=== PATIENT | male | born 1960 | race Caucasian/White ===

== ENCOUNTER → 2024-12-22 11:37 | Outpatient (REF) | payer BC, SELFPAY | LOC: RCS 11:37 | PROVIDERS: ATTENDING PHYSICIAN Internal Medicine Interventional Cardiology; FAMILY PHYSICIAN Family Medicine | DX: R06.09 Other forms of dyspnea (principal); I25.2 Old myocardial infarction | CPT/HCPCS: 78452; 93017; A9500 ==

== ENCOUNTER → 2025-01-21 16:41 | Outpatient (REF) | payer BC, SELFPAY | LOC: RAD 16:41 | PROVIDERS: ATTENDING PHYSICIAN Nurse Practitioner Adult Health; FAMILY PHYSICIAN Family Medicine | DX: R06.09 Other forms of dyspnea (principal) | CPT/HCPCS: 71275; Q9967 ==

== ENCOUNTER 2025-01-23 16:48 | Inpatient (IN) | payer BC, SELFPAY ==
[2025-01-22] VITALS (10 sets, daily range): BP systolic 115–151; BP diastolic 62–95; BMI 34.4
[2025-01-22 13:41] LABS: Hematocrit 43.8 % (39.0-52.0); Hemoglobin 14.7 g/dL (13.0-18.0); Mean Corp Hgb Conc. 33.6 g/dL (33.0-37.0); Mean Corpuscular Volume 79.3 fL (80.0-94.0); Nucleated Red Blood Cells % 0 % (-); Platelet Count 232 10^3/uL (130-400); Red Cell Dist. Width 14.6 % (11.5-14.5)
[2025-01-22 13:52] LABS: INR 0.97; PT 13.4 Sec (11.4-14.6)
[2025-01-22 13:55] LABS: ALT (SGPT) 24 U/L (0-50); AST (SGOT) 24 U/L (17-59); Albumin 4.7 g/dl (3.5-5.0); Alkaline Phosphatase 133 U/L (38-126); Blood Urea Nitrogen 16 mg/dl (9-20); Calcium 9.3 mg/dl (8.4-10.2); Carbon Dioxide 21 mmol/L (22-30); Chloride 109 mmol/L (98-107); Glucose 146 mg/dl (70-99); Potassium 4.0 mmol/L (3.5-5.1); Sodium 140 mmol/L (135-145); Total Protein 7.2 g/dl (6.3-8.2); eGFR > 60.00
[2025-01-22 14:31] LABS: Troponin I 0.074 ng/ml
--- NOTE | 2025-01-22 15:22 | ED.GENMED ---
History of Present Illness
General
Chief Complaint: Chest Pain
Source: patient
Time Seen by Provider: 01/22/25 15:09
History of Present Illness
History of Present Illness:
64-year-old male presents to the emergency room for evaluation of intermittent chest pain. Patient has been experiencing a discomfort and heaviness in his chest which radiates down both arms intermittently for the past few weeks. The discomfort
seems to happen mostly with exertion including walking and doing some low intensity chores around the house. Patient has had a couple episodes which have woken him from sleep. Patient had a evaluation by Dr. Ayala which led to a stress test. The
stress test was reportedly not high risk. He had a evaluation by pulmonary yesterday and a CT of the chest last evening. This did not identify a source for his discomfort. Another call with cardiology led to his referral to the emergency room.
The patient's last episode of pain was 2 days ago. This occurred while walking. No discomfort at this time.
Past History
Past History
ED Past Medical History: GERD, HTN, Hypercholesterolemia and Other (Sleep apnea)
ED Past Surgical History: None
Social History
Tobacco: Former smoker
Alcohol: None
Drug: None
Personal:
Living: with family
Phy Exam
Physical Exam
Physical Exam:
General: Awake, Alert, Oriented X3. No acute distress.
Vitals: unremarkable
Head: Atraumatic
Eyes: Pupils equal, EOMI
Throat: Airway intact, no exudates
Neck: Trachea midline
Lungs: Clear and equal b/l
Heart: Regular rate, no murmurs
Abd: Soft, Nontender, No pulsatile mass
Neuro: Nonfocal
Skin: Warm, dry, no rash
Extremities: pulses equal b/l, no edema
Scores
Heart Score for Chest Pain Patients
STEMI patient?: No
History: Highly Suspicious
ECG: Nonspecific Repolarization
Age: >45 - <65 years
Risk Factors: >/= 3 Risk Factors or History of CAD
Troponin: >1 - <3 x Normal Limit
Heart Score for Chest Pain Patients: 7
Heart Score Risk: 72.7 % MACE over next 6 weeks
Course
Orders/Labs/Results
Orders:
Orders
01/22/25 13:16
Electrocardiogram (*1) Urgent
Reason for Study: Chest Pain
01/22/25 13:17
EKG- Treatment ONCE
01/22/25 13:32
Complete Blood Count/With Diff Urgent
Comprehensive Metabolic Panel Urgent
Prothrombin Time Urgent
Troponin I Urgent
01/22/25 15:13
Electrocardiogram (*1) Urgent
Reason for Study: Chest Pain
EKG- Treatment ONCE
01/22/25 16:31
Heparin 4,000 units IV NOW STA
Nursing to Place Non Medication Order As Directed
Physician Order: PTT 6 hours after initial start of Heparin infusion
01/22/25 16:37
PTT Urgent
Comment: Obtain baseline before beginning heparin infusion if not already collected
01/22/25 16:45
Heparin 29522 Units/250 ml 25,000 units in 250 ml IV PER PROTOCOL
Weight to be used for heparin protocol in kilograms (kg):: 88
Protocol:: Cardiac Tx/Acute Coronary
PTT Goal Range to be used:: PTT 73 to 111 seconds
Order type:: Initial
INITIAL Infusion Dose (UNITS/KG/hr) & then follow protocol:: 15 units/kg/hr
Infusion Dose in UNITS/hr & then follow protocol (UNITS/hr):: 1,300
INFUSION RATE in mL/hr & then follow protocol (mL/hr):: 13
PTT less than or equal to 64 seconds:: Increase rate by 200 units/hr (+ 2 mL/hr)
PTT 64.1 to 72.9 seconds:: Increase rate by 100 units/hr (+ 1 mL/hr)
PTT 73 to 111 seconds:: Target Range. No change in rate.
PTT 111.1 to 130.9 seconds:: Decrease rate by 100 units/hr (- 1 mL/hr)
PTT 131 to 199.9 seconds:: HOLD for 1 hr. Then decrease rate by 200 units/hr (- 2 mL/hr)
PTT greater than or equal to 200 seconds:: HOLD for 2 hrs & Notify Provider. Then decrease by 200 units/hr (-
2 mL/hr)
Lab follow-up:: Each change, PTT q6h until 2 consecutive are therapeutic. Then PTT
daily.
01/22/25 18:30
Admit/Transfer Patient As Directed
Co-Sign Provider:
Level of Care: Observation services
Assign to:: IVU
Physician / Group: Talon Diallo
Diagnosis: unstable angina
PRN Pain Medication Management As Directed
May give lesser potent ordered pain med per pt: Yes
preference::
Protocol:: Medication orders for pain may be administered in a
manner that supports deferring to patient preference
when the pt is:
- Requesting an ordered lesser potent pain medication.
Least to most potent pain medications are defined
as: acetaminophen < NSAID < tramadol < opioids
(morphine, oxycodone, hydromorphone).
- Requesting a lesser dose of the same medication IF
ORDERED.
- Requesting a less intrusive route of administration
if both routes are prescribed by the provider (PO <
IV).
01/22/25 18:32
Code Status As Directed
Resuscitation Status: Full Code
01/22/25 22:00
Ropinirole [Requip] 2 mg PO HS
01/23/25 Breakfast
NPO
Allow oral meds: Yes
Allow clear liquids: No
NPO with Ice Chips: No
Cardiovascular Evaluation IN AM
01/23/25 08:00
Aspirin Chewable [Low Strength Aspirin] 81 mg PO DAILY
Abnormal Lab Results
01/22/25
13:32
MCV 79.3 L fL
(80.0-94.0)
MCH 26.6 L pg
(27.0-31.0)
RDW 14.6 H %
(11.5-14.5)
Chloride 109 H mmol/L
(98-107)
Carbon Dioxide 21 L mmol/L
(22-30)
Glucose 146 H mg/dl
(70-99)
Alkaline Phosphatase 133 H U/L
(38-126)
Troponin I 0.074 H* ng/ml
01/22/25 13:32
01/22/25 13:32
Vital Signs
Initial and Last Documented VS:
Initial Vital Signs
Temp Pulse Resp BP Pulse Ox
98.3 F 93 16 151/95 97
01/22/25 13:21 01/22/25 13:21 01/22/25 13:21 01/22/25 13:21 01/22/25 13:21
Last Documented Vital Signs
Temp Pulse Resp BP Pulse Ox
98.3 F 78 23 118/62 96
01/22/25 13:21 01/22/25 20:00 01/22/25 20:00 01/22/25 20:00 01/22/25 20:00
MDM/Problems Addressed
Differential Diagnosis Includes:
Stable angina, unstable angina, ACS, STEMI
MDM/Problems Addressed:
Patient presents with intermittent chest discomfort. He has not had discomfort for a day or so but his troponin is elevated here. No ischemic changes on his EKG. His overall story sounds highly concerning for acute coronary syndrome. Will start
him on heparin. Patient will be admitted for. Patient seen by cardiology (Dr. Schultz) here in the emergency room and I discussed the case with him.
Chronic conditions affecting care: HTN
*Pulse Oximetry
SaO2: 97
Oxygen Mode of Delivery: Room air
Patient hypoxic: no
*EKG
Interpreted by ED Provider?: Yes
Heart Rate: 93
Rate: normal
Rhythm: sinus
[place]: normal axis
Interval: normal interval
QRS Pattern: normal QRS
Ischemia: non-specific ST changes
*Wall And Floor Tiler Interpretation
Rate: normal
Interpretation: normal
Heart Rate: 93
Rhythm: sinus
*Critical Care Note
Total Time (30-74mins, 75-104mins- exclusive of procedures): 32 min
comment:
Critical care statement: A total of 32 minutes of critical care time was provided for this patient. This includes management of unstable vital signs, evaluation of the patient at bedside, reviewing the patient's pertinent medical records, discussion
with consultants, review of old EKGs and review of pertinent medical records. This time with separate from time utilized to perform the aforementioned documented procedures
ED Attending Note
-
Portions of this chart may have been created with voice recognition software.� Occasional wrong word or��sound alike� substitutions may have occurred due to the inherent limitations of voice recognition software.
Discharge Plan
Departure
Patient Disposition: Admit
Date of Disposition: 01/22/25
Time of Disposition: 16:32
Presentation/result/management discussed w/ accepting MD/DO: Hospitalist
Condition: Fair
Discharge Problem:
Unstable angina
Interventions
Interventions:
*Risk Screen - Suicide Last Done: 01/22/25 13:21
*General Assessment Last Done: 01/22/25 15:33
*Neglect/Abuse Screening Last Done: 01/22/25 13:21
*ED- Fall Risk Assessment Last Done: 01/22/25 15:33
*ED COVID-19 Vaccine History Last Done: 01/22/25 15:33
ED- Cardiac Assessment Last Done: 01/22/25 15:33
--- NOTE | 2025-01-22 16:13 | CON.CAR ---
Addendum entered and electronically signed by Cale Mcdonald MD 01/22/25 16:59:
I saw and examined the patient.
The COATING MACHINE FEEDER or PA's note was reviewed and I agree with the note.
Comment: General: Well developed, well nourished in NAD.
Neck: Supple, no JVD, HJR, carotids +2 B/L, no bruits bilaterally.
Heart: Non displaced PMI, RRR, no murmurs, No S3, S4, no rubs.
Lungs: Clear to auscultation bilaterally, no wheeze, rhonchi, rubs bilaterally,
normal expiratory phase.
Abdomen: Normal bowel sounds, soft, non-tender, non-distended.
Extremities: No clubbing, cyanosis or edema bilaterally.
Neuro: Grossly nonfocal, awake, alert and oriented x3.
Orlin has a history of LAD stent in November 2021, hypertension, hyperlipidemia,. He has had chest discomfort for 2 months. Pain is worse with exertion. Exercise MIBI was negative in December 2024. He presents with worsening chest discomfort with
minimally elevated troponin of 0.074. Of note he had chest discomfort in the past week or 2 that occurred at rest and woke him up from sleep. He denies chest pain at the present time.
He will be admitted and started on IV heparin. Plan on cardiac catheterization on 01/23. Discussed in detail with patient, , and interventional cardiology. He was on Brilinta in the past. Of note he had a skin cancer removal yesterday but
wound appears okay.
Original Note:
Consultation
Consultation Request
Date/Time Consultation Requested: 01/22/25
Date/Time Consultation Performed: 01/22/25
Requesting Provider: Dr. Berry in the ER
Performing Provider: Dr. Mcdonald
Reason for Consultation: Chest pain
Medical History
-
History of Present Illness:
Patient presents to [facility] ER with increasing episodes of chest pain including an episode of chest pain at rest and is being admitted with consultation to cardiology. Patient has a history of CAD with LAD PCI 12/06/2021. At that time cardiac cath
showed residual 50% mid circumflex and 40% proximal RCA. Patient completed DAPT with aspirin and Brilinta and now remains on aspirin 81 mg daily. Patient was seen in the office on 12/09/2024 with reports of chest pain and dyspnea on exertion.
Patient reports the chest pain is similar to but more intense than the pain that he had back in 2021. He gets a pain in his chest with radiation up and down his left arm. Episodes happen every time he exerts himself and pain seems to be happening
at lower levels of activity. He then had a resting episode of pain this week and came to the ER today with his ongoing symptoms. His troponin was elevated at 0.074 initially, but no acute ischemic changes on ECG.
PMH:
s/p 3.5 mm Xience MONET to the mid LAD 12/06/2021
residual non critical CAD with 50% mLCx, 40% prox RCA by cath 12/06/2021
HTN w/LVH
HLD
FH premature CAD (maternal)
Left rotator cuff surgery repair with Dr. Gottlieb 04/29/2021
Past Medical History
Past Medical History: Other (in HPI)
Past Surgical History: Cardiac (LAD PCI 2021) and Orthopedic
Social History
Tobacco: Non-Smoker
Alcohol: None
Drug: None
Personal:
Living: With Family
Family History
Family History: CAD and Hypertension
Allergies / Home Medications
Allergy/AdvReac Type Severity Reaction Status Date / Time
cefazolin (From [facility]) Allergy Unknown Verified 01/22/25 13:21
�Medication �Instructions �Recorded �Confirmed �Type
valsartan 320 mg tablet 320 mg PO DAILY Blood pressure 12/04/21 01/22/25 History
amlodipine 10 mg tablet 10 mg PO DAILY #90 tabs 12/07/21 01/22/25 Rx
aspirin 81 mg tablet,delayed 81 mg PO DAILY 12/07/21 01/22/25 Rx
release
atorvastatin 40 mg tablet 40 mg PO QPM #90 tabs 12/07/21 01/22/25 Rx
esomeprazole magnesium 20 mg 20 mg PO BID 01/22/25 01/22/25 History
capsule,delayed release (Nexium)
ropinirole 1 mg tablet 2 mg PO HS 01/22/25 01/22/25 History
tadalafil 5 mg tablet 5 mg PO DAILY 01/22/25 01/22/25 History
terbinafine HCl 250 mg tablet 250 mg PO QPM 01/22/25 01/22/25 History
Review of Systems
-
History Source: Patient and Family
All other systems: Negative unless noted
Physical Exam
Vital Signs
Temp Pulse Resp BP Pulse Ox
98.3 F 74 28 129/82 96
01/22/25 13:21 01/22/25 15:30 01/22/25 15:30 01/22/25 15:30 01/22/25 15:30
GEN: NAD. AAOx3
HEENT: EOMI, MMM
LUNGS: RA. CTA B/L, no wheezes/rales
CV: Reg, S1/S2, no murmur
ABD: soft, BS+, NT, ND
EXT: No edema B/L LE
NEURO: Gross non-focal
SKIN: Middle upper back dressing in place following Moh's surgery for skin cancer. No rash
Lab Results
01/22/25 13:32
01/22/25 13:32
Troponin I 0.074 ng/ml H* 01/22/25 13:32
Impression / Plan
-
CDY: Caron
PCP: King Blank MD
Impression:
Admitted with ACS and USA symptom 01/22/2025
Episode of chest pain at rest
Elevated troponin
CAD
s/p 3.5 mm Xience MONET to the mid LAD 12/06/2021
residual non critical CAD with 50% mLCx, 40% prox RCA by cath 12/06/2021
HTN w/LVH
HLD
FH premature CAD (maternal)
Left rotator cuff surgery repair with Dr. Gottlieb 04/29/2021
Echo 12/06/21: EF 60-65%, no WMA, trace MR, PASP 31-36
Echo 01/30/2023: EF 63%, mild concentric LVH, no significant valve disease
Exercise nuclear stress test 12/22/2024: Completed 6 minutes 30 seconds of Coy protocol for 7.5 METS of activity and 85% MPHR, small area of mildly decreased perfusion that was partially reversible in the mid and apical inferolateral segments but
the defect disappeared with stress prone imaging suggesting soft tissue attenuation rather than ischemia, transient ischemic dilation not present
Plan:
-Patient presents to [facility] ER with increasing episodes of chest pain including an episode of chest pain at rest and is being admitted with consultation to cardiology. Patient has a history of CAD with LAD PCI 12/06/2021. At that time cardiac cath
showed residual 50% mid circumflex and 40% proximal RCA. Patient completed DAPT with aspirin and Brilinta and now remains on aspirin 81 mg daily. Patient was seen in the office on 12/09/2024 with reports of chest pain and dyspnea on exertion.
Patient reports the chest pain is similar to but more intense than the pain that he had back in 2021. He gets a pain in his chest with radiation up and down his left arm. Episodes happen every time he exerts himself and pain seems to be happening
at lower levels of activity. He then had a resting episode of pain this week and came to the ER today with his ongoing symptoms. His troponin was elevated at 0.074 initially, but no acute ischemic changes on ECG.
-ECG reviewed by me as NSR without acute ST change
-Initial troponin 0.074 and will trend. Based on symptoms and h/o CAD there is a strong chance that patient will rule in for NSTEMI.
-Heparin gtt being started in the ER
-Continue aspirin 81 mg daily
-Patient completed Brilinta therapy in 2021 without adverse event
-Check echo
-Check CVE and outpatient dose of atorvastatin 40 mg daily should be continued
-Toprol-XL was stopped in the past for unclear reasons
-Outpatient dose of amlodipine 10 mg daily should be continued
-Outpatient dose of valsartan 320 mg daily should be continued
[2025-01-22 16:58] LABS: APTT 28.5 Sec (23.4-35.0)
[2025-01-22] MEDS: HEPARIN 4000 UNITS IV (17:16)
[2025-01-22] MEDS: HEPARIN 25000 UNITS/250 ML IV (17:17)
--- NOTE | 2025-01-22 17:56 | HPS.HSE ---
Family Physician
-
Family Physician: King Blank
Chief Complaint
-
exertional dyspnea and chest discomfort
History of Present Illness
Patient is a 64-year-old male with past medical history significant for hypertension, hyperlipidemia, CAD, restless leg syndrome and GERD who presented to [facility] ED for evaluation of exertional dyspnea and chest discomfort for last 2 months. Patient
reports he has had worsening exertional dyspnea and chest pressure for last 2 months. He has had workup done out patient with stress test and PFTs with no significant findings. Patient recently with dyspnea that woke him from his sleep and was
associated with chest pressure that radiated down both arms. He reviewed this with pulmonary doctor who recommended he come to ED for evaluation. Denies any recent illness, fever, chills, nause, vomting or changes in bowel or bladder.
Medical History
Past Medical History
Past Medical History: Reports Other
Additional Past Medical History:
hypertension
hyperlipidemia
CAD
restless leg syndrome
GERD
Past Surgical History: Reports Other
Additional Past Surgical History:
cardiac cath with stent placement 2021
MOHS
lumbar surgery
bilateral shoulder surgery
Social History
Tobacco: Non-smoker
Alcohol: Occasional
Drug: None
Personal:
Living: With Family
Employment: Employed
Family History
Family History: Not pertinent
Allergies / Home Medications
Allergies reflects when Allergies were last updated in [facility].
Home Medications with original date entered in [facility]
Allergy/Medication List:
Allergies
Allergy/AdvReac Type Severity Reaction Status Date / Time
cefazolin (From [facility]) Allergy Unknown Verified 01/22/25 13:21
Home Medications
valsartan 320 mg tablet 320 mg PO DAILY Blood pressure 12/04/21
amlodipine 10 mg tablet 10 mg PO DAILY #90 tabs 12/07/21
aspirin 81 mg tablet,delayed release 81 mg PO DAILY 12/07/21
atorvastatin 40 mg tablet 40 mg PO QPM #90 tabs 12/07/21
esomeprazole magnesium 20 mg capsule,delayed release (Nexium) 20 mg PO BID 01/22/25
ropinirole 1 mg tablet 2 mg PO HS 01/22/25
tadalafil 5 mg tablet 5 mg PO DAILY 01/22/25
terbinafine HCl 250 mg tablet 250 mg PO QPM 01/22/25
Review of Systems
-
History Source: Patient
Constitutional: Reports Sleep Disturbance
EENT: Reports No Symptoms
Respiratory: Reports Trouble Breathing (exertional dyspnea )
Cardiac: Reports Chest Pain
Abdomen/GI: Reports No Symptoms
: Reports No Symptoms
Musculoskeletal: Reports No Symptoms
Skin: Reports No Symptoms
Neurological: Reports No Symptoms
Endocrine: Reports No Symptoms
Hematologic/Lymphatic: Reports No Symptoms
Psych: Reports No Symptoms
Physical Exam
Vital Signs
Vital Signs
Temp Pulse Resp BP Pulse Ox
98.3 F 70 23 138/93 98
01/22/25 13:21 01/22/25 17:45 01/22/25 17:45 01/22/25 17:00 01/22/25 17:45
Physical Exam
General: Well Developed, Well Nourished and No Apparent Distress
HEENT: NormoCephalic, Moist mucous membranes and Atraumatic
Respiratory: Clear and Non Labored Respirations
Cardiac: S1/S2 and Regular Rhythm; No Murmur
GI: Soft, Non Tender, Non Distended and Normal Bowel Sounds
Rectal: Deferred by Provider
Musculoskeletal: No Clubbing, No Cyanosis and No Edema
Skin: Warm and IV/Catheter Site
Neuro: Awake, AO x 3 and Nonfocal/grossly intact
Psych: Calm and Intact Judgment/Insight
Laboratory Results
-
01/22/25 13:32
01/22/25 13:32
Laboratory Results
PT 13.4 Sec (11.4-14.6) 01/22/25 13:32
INR 0.97 01/22/25 13:32
APTT 28.5 Sec (23.4-35.0) 01/22/25 16:37
Total Bilirubin 0.5 mg/dl (0.2-1.3) 01/22/25 13:32
AST 24 U/L (17-59) 01/22/25 13:32
ALT 24 U/L (0-50) 01/22/25 13:32
Alkaline Phosphatase 133 U/L (38-126) H 01/22/25 13:32
Troponin I 0.074 ng/ml H* 01/22/25 13:32
Data Reviewed
-
Medical Tests (Nuc Med, Echo, EKG etc): Report Reviewed by me (EKG: NORMAL SINUS RHYTHM INFERIOR INFARCT (CITED ON OR BEFORE 15-DEC-2011))
Lab Data: Labs Reviewed by me (trop 0.074)
Impression/Plan
-
IMPRESSION/PLAN:
#unstable angina
Trop 0.074
EKG: NORMAL SINUS RHYTHM
INFERIOR INFARCT (CITED ON OR BEFORE 15-DEC-2011)
- Admit to IVU
- Consult Cardiology
- heparin gtt
- ECHO in AM
- trend troponin
- NPO at midnight for likely medical lab technician
#hypertension
- continue amlodipine and valsartan
#hyperlipidemia
- continue atorvastatin
#CAD
- continue aspirin and atorvastatin
#restless leg syndrome
- continue ropinirole
#GERD
- continue esomeprazole
Code status: full code
DVT prophylaxis: heparin gtt
--- NOTE | 2025-01-22 18:54 | W.PN.UPDATE ---
Update Note
Progress Note Update
This note serves as an addendum to the H&P by check processing clerk JAUN Karyn Payton
HPI
64M Non smoker, HX LAD stent in November 2021, hypertension, hyperlipidemia seen at ER:
- pw worse chest discomfort for 2 months
- CP is aggrevated by exertion.
- last one week CP at at rest and woke him up from sleep.
- He denies chest pain at the present time.
- Per Card note : Exercise MIBI was negative in December 2024.
- Noted minimally elevated troponin of 0.074.
PHX; see above
Vital Signs
Temp Pulse Resp BP Pulse Ox
98.3 F 70 23 138/93 98
01/22/25 13:21 01/22/25 17:45 01/22/25 17:45 01/22/25 17:00 01/22/25 17:45
PE
Gen: NAD, not toxic
Neck: supple, no JVD
Lungs: CTA
Cor: RRR , no murmur
Abdomen: benign
COUNTER CONTROL OPERATOR: AAO3, NFND
MS:no edema
Psych: appropriate
Labs
01/22/25
13:32
WBC 5.7
Hgb 14.7
Plt Count 232
INR 0.97
BUN 16
Creatinine 1.0
eGFR > 60.00
Troponin I 0.074 H*
EKG
NORMAL SINUS RHYTHM
INFERIOR INFARCT (CITED ON OR BEFORE 15-DEC-2011)
ABNORMAL ECG
WHEN COMPARED WITH ECG OF 22-JAN-2025 13:20,
PREMATURE SUPRAVENTRICULAR COMPLEXES ARE NO LONGER PRESENT
Last hospitalist admission in 2020
ASSESSMENT & PLAN
Presumed unstable ACS +/_ evolving NSTEMI
HX CAD with LAD stent on ASA on Statin
HX Brilinta in the past.
- abnormal first TPNI
- agree with Heparin gtt
- NPO after MN for cardiac catheterization on 01/23.
S/P skin cancer removal 01/21/25
- wound appears okay.
Benign HTN
- cont amlodipine and valsartan
Dyslipidemia
- on HOSPITAL ADMISSIONS OFFICER atorvastatin and ASA
Restless leg syndrome
- cont. ropinirole
DVT Px: on Heparin gtt
Full code
IVU
[2025-01-22] MEDS: REQUIP 2 MG PO (21:13)
[2025-01-22 23:45] LABS: APTT 78.1 Sec (23.4-35.0)
[2025-01-23] VITALS (16 sets, daily range): BP systolic 110–135; BP diastolic 74–97; BMI 31.1
[2025-01-23 01:31] LABS: Troponin I 0.061 ng/ml
--- NOTE | 2025-01-23 01:35 | PTCARENOTE ---
Pt rec'd from ED awake,alert on R/A. Sinus on telemetry; CP free. Heparin therapeutic at 1300 units/hr. 2nd troponin trending down 0.061. Npo after mn
Pt reports having severe allergy to medication prior to back surgery years ago at [facility]. Pt unable to recall drug. Pt states he'll call his in am for name.
[2025-01-23] MEDS: TYLENOL 650 MG PO ×2 (02:10→19:26)
[2025-01-23 05:39] LABS: Hematocrit 40.3 % (39.0-52.0); Hemoglobin 13.3 g/dL (13.0-18.0); Mean Corp Hgb Conc. 33.0 g/dL (33.0-37.0); Mean Corpuscular Volume 80.4 fL (80.0-94.0); Platelet Count 206 10^3/uL (130-400); Red Cell Dist. Width 14.6 % (11.5-14.5)
--- NOTE | 2025-01-23 05:43 | PTCARENOTE ---
Pt remains cp free
[2025-01-23 06:15] LABS: Troponin I 0.048 ng/ml
--- NOTE | 2025-01-23 06:33 | PTCARENOTE ---
Pt's confirmed allergy listed Cefazolin is the only allergy.
[2025-01-23 06:36] LABS: ALT (SGPT) 22 U/L (0-50); AST (SGOT) 25 U/L (17-59); Albumin 4.0 g/dl (3.5-5.0); Alkaline Phosphatase 122 U/L (38-126); Blood Urea Nitrogen 19 mg/dl (9-20); Calcium 9.0 mg/dl (8.4-10.2); Carbon Dioxide 21 mmol/L (22-30); Chloride 109 mmol/L (98-107); Estimated Creatinine Clearance 71 ml/min; Glucose 113 mg/dl (70-99); HDL Cholesterol 22 mg/dl; LDL Cholesterol, Calculated 4 mg/dl; Potassium 4.0 mmol/L (3.5-5.1); Sodium 138 mmol/L (135-145); Total Protein 6.2 g/dl (6.3-8.2); Very Low Density Lipoprotein 66 mg/dl (0-30); eGFR > 60.00
[2025-01-23 06:39] LABS: APTT 90.7 Sec (23.4-35.0)
[2025-01-23 07:58] LABS: Troponin I 0.045 ng/ml
--- NOTE | 2025-01-23 08:00 | PTCARENOTE ---
Assumed care of pt from prev nsg shift; Pt AAOx3 w/no c/o CP or SOB. Pt's VSS w/HR in the60's & BP 128/84 this AM. Pt w/IV heparin drip infusing through patent line as per MD order. Pt NPO since 0000 awaiting blender laborer today. Plan of care discussed
w/pt. Pt w/call velasquez within reach & no addtl needs at this time.
[2025-01-23] MEDS: LOW STRENGTH ASPIRIN PO (09:22)
[2025-01-23] MEDS: NORVASC 10 MG PO (09:22)
[2025-01-23] MEDS: PROTONIX 40 MG PO ×2 (09:23→19:26)
[2025-01-23] MEDS: ASPIR LOW (ENTERIC COATED) 81 MG PO (09:23)
[2025-01-23] MEDS: DIOVAN 320 MG PO (09:23)
[2025-01-23 11:26] LABS: Glycohemoglobin (HgbA1c) 6.1 % (4.0-5.6)
--- NOTE | 2025-01-23 12:46 | CM ---
Addendum entered by Berna Knutson 01/23/25 16:59:
His script for Tricagrelor was sent to [facility]. Update spouse regarding where to get the medication.
Original Note:
Reviewed chart. Met [facility] and to review discharge plans. He states prior to admission he resides with his spouse in a two story home with one step to enter. He states he has a full flight of steps to get to bedroom/full bathroom. He
states he has a powder room on the first floor. He states prior to admission he was independent with ambulation and adls. He states he has a CPAP Machine at home. He states he has prescription plan and uses [facility]. Telephone call to his
insurance to check on the co-pay for Brilinta 90 mg po bid. His co-pay for Brilinta is $200.00 a month and generic Tricagrelor 90 mg po bid is $15.00 a month and $30.00 for three months. Telephone call to [facility] and they do not have it in
stock for Brilingta or Tricagrelor. Telephone call to [facility] on [address] does have Tricagrelor 90 one month supply in stock. Medical work up in progress. The discharge plan is to return home with his spouse when medically stable.
[2025-01-23] MEDS: HEPARIN 25000 UNITS/250 ML IV (12:55)
--- NOTE | 2025-01-23 15:03 | W.PN.HOSP.TC ---
Today's Communication/Plan
-
LHC today
Asa
Assessment / Plan
Assessment / Plan
Physical Exam
General: Well Developed, Well Nourished and No Apparent Distress
HEENT: NormoCephalic, Moist mucous membranes and Atraumatic
Respiratory: Clear and Non Labored Respirations
Cardiac: S1/S2 and Regular Rhythm; No Murmur
GI: Soft, Non Tender, Non Distended and Normal Bowel Sounds
Rectal: Deferred by Provider
Musculoskeletal: No Clubbing, No Cyanosis and No Edema
Skin: Warm and IV/Catheter Site
Neuro: Awake, AO x 3 and Nonfocal/grossly intact
Psych: Calm and Intact Judgment/Insight
#unstable angina
#Elevated Troponin
-Exercise MIBI was negative in December 2024
- heparin gtt
- NPO For LHC
#hypertension
- continue amlodipine and valsartan
#hyperlipidemia
- continue atorvastatin
#CAD
- continue aspirin and atorvastatin
#restless leg syndrome
- continue ropinirole
#GERD
- continue esomeprazole
#nodular opacities within the bilateral lower lobes measuring up to 1.7 cm in the left lower lobe.
#numerous enlarged mediastinal and right hilar lymph nodes, possibly reactive.
- Short interval follow-up CT is recommended to ensure resolution.
#There are hypodense thyroid nodules measuring up to 1.2 cm in the right hemithyroid.
- Recommend dedicated nonemergent thyroid ultrasound for further evaluation if not previously evaluated.
Total time spent on today's encounter was 51 minutes which included time spent in counseling the patient/family regarding diagnosis and treatment plan as listed above, goals of care, and symptom management. Case was discussed with nursing staff,
specialists, and care coordinators/case management. All labs and imaging personally reviewed by me. Remainder the time spent in detailed review of previous records, lab data, imaging, and other medical provider documentation.
Anticipated Discharge: Within 24 hours
Subjective/Interval History
-
Date of Service: January 23, 2025
Plan for cardiac cath today, no other issues overnight
Objective Data
-
Labs:
Laboratory Results
01/23/25 01/23/25
05:17 06:13
WBC 5.4
Hgb 13.3
Hct 40.3
Plt Count 206
APTT 90.7 H
Sodium 138
Potassium 4.0
Chloride 109 H
Carbon Dioxide 21 L
BUN 19
Creatinine 1.0
Glucose 113 H
Calcium 9.0
Total Bilirubin 0.4
AST 25
ALT 22
Alkaline Phosphatase 122
Vital Signs:
Vital Signs
Temp Pulse Resp BP Pulse Ox
98.1 F 90 18 124/84 97
01/23/25 10:59 01/23/25 12:00 01/23/25 10:59 01/23/25 11:00 01/23/25 10:59
I&O
01/22/25 01/23/25 01/24/25
06:59 06:59 06:59
Intake Total 60 / 60
Balance 60 / 60
Review of Systems
-
History Source: Patient
All other systems: Not reviewed unless documented
Data Reviewed
-
CT Scan: Report Reviewed by me
Labs: Labs Reviewed by me
[2025-01-23 16:36] LABS: ACT-LR - POC 247 Seconds (116-155)
[2025-01-23 16:47] LABS: ACT-LR - POC 321 Seconds (116-155)
--- NOTE | 2025-01-23 17:38 | ITS.CL.CATH ---
Deckhand Engineer - Catheterization
Cardiac Catheterization
Procedure Report:
LEFT HEART CATHETERIZATION AND CORONARY INTERVENTION
Date of Procedure: January 23, 2025
Referring: Dr. Cale Mcdonald
PROCEDURES:
1. Left heart catheterization, coronary angiogram.
2. Moderate sedation.
3. Successful percutaneous coronary artery intervention to a 90% hazy mid left circumflex into OM1 stenosis with one 2.5 x 22 mm Medtronic [place] drug-eluting stent, postdilated using IVUS guidance with a 2.5 x 15 mm NC balloon at 18 raghu with an
excellent angiographic and IVUS based result.
4. Intravascular ultrasound
INDICATION: Concern for NSTEMI
ACCESS: Right radial artery, 6Fr. sheath, under US guidance.
HEMODYNAMICS : (mmHg)
AO (s/d) : 114/75
LVEDP : 16
No significant gradient across the aortic valve to suggest aortic stenosis.
CORONARY FINDINGS
Dominance: Right
Left Main Trunk (LMT): Large caliber vessel that gives rise to the LAD and LCx branches and is free of angiographic disease.
Left Anterior Descending Artery (LAD): Large caliber vessel that gives off 2 major diagonal branches as it courses along the anterior inter-ventricular groove before wrapping around the cardiac apex. Previously placed mid LAD stent is widely
patent. There is otherwise mild diffuse atherosclerotic plaque.
Left Circumflex Artery (LCx): Large caliber vessel that gives off 2 major obtuse marginal (OM) branches as it courses along the atrio-ventricular (AV) groove. Mid left circumflex extending into OM 2 has a hazy 90% stenosis which is thought to be
the likely culprit of presenting ACS and was intervened upon as noted below.
Right Coronary Artery (RCA): Large caliber dominant vessel that gives rise to the posterior descending artery (RPDA) and postero-lateral ventricular (RPLV) branches distally. There is mild diffuse atherosclerotic plaque.
CORONARY INTERVENTION: Decision was made to proceed with PCI to mid left circumflex into OM1 as this is thought to be the culprit lesion for presenting ACS. Additional heparin was given to maintain a therapeutic ACT throughout the case. The left
coronary artery was selectively engaged using a 6 Bulgarian EBU 3.5 guide catheter. A 014' Runthrough wire was successfully advanced into the distal vessel. The lesion was predilated using a 2.5 x 15 mm semi-compliant balloon with full expansion.
The lesion was subsequently stented using a 2.5 x 22 mm Medtronic [place] drug-eluting stent and postdilated using IVUS guidance with a 2.5 x 15 mm NC balloon at 18 raghu with an excellent angiographic and IVUS based result. A very small branch at the
distal edge of the stent now had SRIDEVI II flow correlating with patient having 3 out of 10 chest pain for which he was given medications. Plan would be to medically treat this as it is a sub-2 mm vessel with no PCI targets. Patient was loaded with
180 mg of Brilinta at the end of the case.
SEDATION: 67 minutes of procedural sedation was utilized. IV Midazolam and IV Fentanyl were administered. An independent medical affairs director was present to assist with and help manage the patient's level of consciousness and physiologic status.
RADIATION SUMMARY: Fluoro Time (min): 13.2, Dose (mGy): 886.49, DAP (Gy.cm2) : 68.7
Closure Device: There were no immediate intra-procedural complications. The sheath was pulled in the quality lab technician and a vascular-band applied to the right wrist for radial artery hemostasis using the patent hemostasis technique.
CONCLUSIONS
1. Successful percutaneous coronary artery intervention to a 90% hazy mid left circumflex into OM1 stenosis with one 2.5 x 22 mm Medtronic [place] drug-eluting stent, postdilated using IVUS guidance with a 2.5 x 15 mm NC balloon at 18 raghu with an
excellent angiographic and IVUS based result.
2. A very small branch at the distal edge of the stent now had SRIDEVI II flow correlating with patient having 3 out of 10 chest pain for which he was given medications. Plan would be to medically treat this as it is a sub-2 mm vessel with no PCI
targets.
3. Nonobstructive coronary artery disease otherwise. Mid LAD stent placed in 2021 is widely patent.
4. LVEDP of 16 mmHg.
RECOMMENDATIONS
1. Wean radial band per protocol. Monitor right hand perfusion and for bleeding from the radial site following removal of the vascular-band following trans-radial access.
2. Continue aggressive medical therapy and risk factor modification for secondary CAD prevention.
3. Continue ASA 81 mg daily for life.
4. Continue Brilinta for at least 12 months of uninterrupted dual anti-platelet therapy given drug-eluting stent (MONET) implantation to mitigate the risk of stent thrombosis. This is not to be stopped for any reason without the guidance of a
assembler small products.
5. Hydrate with normal saline to mitigate the risk of contrast-induced acute kidney injury.
6. Referral for outpatient cardiac rehab.
7. Follow-up with outpatient assembler small products.
Copy to: Dr. Cale Mcdonald
[2025-01-23] MEDS: MORPHINE SULFATE 2 MG IV (17:43)
[2025-01-23] MEDS: LIPITOR 40 MG PO (17:43)
[2025-01-23] MEDS: TOPROL XL 12.5 MG PO (17:43)
[2025-01-23] MEDS: REQUIP 2 MG PO (19:26)
--- NOTE | 2025-01-23 23:20 | PTCARENOTE ---
Patient received at change of shift resting in the bed. Right radial TR band intact, radial pulse palpable, pox 95-97%. Patient reports mild headache, improved with PRN acetaminophen, see MAR. Per patient chest pain has resolved and now rates it as
a zero. Sinus rhythm on telemetry. Oxygen saturation on room air 95-97%. TR band removed at 2314 without incident. Gauze and tegaderm applied. Some ecchymosis noted surrounding the puncture but the area is soft to palpation. Radial pulse normal.
Plan of care discussed. Call velasquez within reach. Care ongoing.
[2025-01-24 03:38] VITALS: BP 107/75
[2025-01-24 04:16] LABS: Hematocrit 39.6 % (39.0-52.0); Hemoglobin 13.3 g/dL (13.0-18.0); Mean Corp Hgb Conc. 33.6 g/dL (33.0-37.0); Mean Corpuscular Volume 80.0 fL (80.0-94.0); Platelet Count 209 10^3/uL (130-400); Red Cell Dist. Width 14.2 % (11.5-14.5)
[2025-01-24 04:45] LABS: ALT (SGPT) 22 U/L (0-50); AST (SGOT) 25 U/L (17-59); Albumin 3.9 g/dl (3.5-5.0); Alkaline Phosphatase 110 U/L (38-126); Blood Urea Nitrogen 19 mg/dl (9-20); Calcium 9.0 mg/dl (8.4-10.2); Carbon Dioxide 23 mmol/L (22-30); Chloride 105 mmol/L (98-107); Estimated Creatinine Clearance 79 ml/min; Glucose 116 mg/dl (70-99); Magnesium 2.0 mg/dl (1.6-2.3); Potassium 4.2 mmol/L (3.5-5.1); Sodium 135 mmol/L (135-145); Total Protein 6.1 g/dl (6.3-8.2); eGFR > 60.00
--- NOTE | 2025-01-24 07:50 | PTCARENOTE ---
Assumed care of pt from prev nsg shift; Pt AAOx3 w/no c/o CP or SOB. Pt's VSS w/HR in the 70's & BP 107/75 this AM. Pt is SR on telemetry monitoring. Pt w/R radial site w/dressing C/D/I w/no signs & symptoms of bleeding & hematoma. Pt anxious for
D/C to home. Pt w/call velasquez within reach & no addtl needs at this time.
--- NOTE | 2025-01-24 08:05 | W.PN.CARDCBS ---
Addendum entered and electronically signed by Boy Perry MD 01/24/25 10:54:
Patient seen, interviewed and examined by me.
Describes no chest pain shortness of breath palpitations or dizziness. Looking forward to going home.
Well-appearing, no acute distress
Regular rate and rhythm with normal S1 and S2, no S3 no S4. There is a grade 1/6 apical holosystolic murmur and no rubs. PMI is normally placed.
Lungs are clear to auscultation bilaterally without wheezes rales or rhonchi.
Abdomen soft nontender nondistended with normoactive bowel sounds
Extremities show trace pretibial edema bilaterally no clubbing or cyanosis.
Neurologic exam is grossly nonfocal.
Remains hemodynamically stable after PCI of OM1 yesterday.
We will check an outpatient echocardiogram which we arranged via our outpatient office.
Maintain aspirin and Brilinta.
Maintain Crestor Toprol Diovan and Norvasc.
Patient has been referred for cardiac rehab.
All of his questions have been answered.
Stable for discharge to home from a cardiology standpoint
Original Note:
Today's Communication / Plan
-
Status post OM1 PCI
Outpatient echo, to be arranged through cardiology office
Continue aspirin, Brilinta, Crestor, Toprol, Diovan, Norvasc
Cardiac rehab
Outpatient cardiac follow-up to be arranged
Impression / Plan
-
CDY: Caron
PCP: King Blank MD
Impression:
Admitted with ACS and USA symptom 01/22/2025
Episode of chest pain at rest
NSTEMI status post OM1 PCI 01/23/2025
CAD
s/p 3.5 mm Xience MONET to the mid LAD 12/06/2021
residual non critical CAD with 50% mLCx, 40% prox RCA by cath 12/06/2021
HTN w/LVH
HLD
FH premature CAD (maternal)
Left rotator cuff surgery repair with Dr. Gottlieb 04/29/2021
Echo 12/06/21: EF 60-65%, no WMA, trace MR, PASP 31-36
Echo 01/30/2023: EF 63%, mild concentric LVH, no significant valve disease
Exercise nuclear stress test 12/22/2024: Completed 6 minutes 30 seconds of Coy protocol for 7.5 METS of activity and 85% MPHR, small area of mildly decreased perfusion that was partially reversible in the mid and apical inferolateral segments but
the defect disappeared with stress prone imaging suggesting soft tissue attenuation rather than ischemia, transient ischemic dilation not present
Plan:
- Patient presented with chest pain and ruled in for NSTEMI with peak troponin of 0.074.
- Underwent cardiac catheterization 01/23/2025 resulting in OM1 PCI, prior mid LAD stent widely patent
- Remains in sinus rhythm on review of telemetry overnight
- Continue aspirin, Brilinta. Hemoglobin 13.3
- Echo not completed, will arrange for outpatient echo within next week through our office
- Toprol 12.5 mg every afternoon added back this admission. Continue outpatient Diovan and Norvasc.
- LDL was 4. Continue Crestor.
- Cardiac rehab
- Will arrange outpatient cardiac follow-up
- Encourage patient to ambulate around unit and if tolerates without symptoms, okay for discharge to home today
- Discussed with nursing
PREADMIT DATA:
-Patient presents to [facility] ER with increasing episodes of chest pain including an episode of chest pain at rest and is being admitted with consultation to cardiology. Patient has a history of CAD with LAD PCI 12/06/2021. At that time cardiac cath
showed residual 50% mid circumflex and 40% proximal RCA. Patient completed DAPT with aspirin and Brilinta and now remains on aspirin 81 mg daily. Patient was seen in the office on 12/09/2024 with reports of chest pain and dyspnea on exertion.
Patient reports the chest pain is similar to but more intense than the pain that he had back in 2021. He gets a pain in his chest with radiation up and down his left arm. Episodes happen every time he exerts himself and pain seems to be happening
at lower levels of activity. He then had a resting episode of pain this week and came to the ER today with his ongoing symptoms. His troponin was elevated at 0.074 initially, but no acute ischemic changes on ECG.
Progress Note - Stake Driver
Subjective
Date of Service: January 24, 2025
No chest pain or shortness of breath overnight
Objective
Labs:
01/24/25 03:45
01/24/25 03:45
Labs
Hgb 13.3 g/dL (13.0-18.0) 01/24/25 03:45
Hct 39.6 % (39.0-52.0) 01/24/25 03:45
Plt Count 209 10^3/uL (130-400) 01/24/25 03:45
PT 13.4 Sec (11.4-14.6) 01/22/25 13:32
INR 0.97 01/22/25 13:32
APTT 90.7 Sec (23.4-35.0) H 01/23/25 06:13
Sodium 135 mmol/L (135-145) 01/24/25 03:45
Potassium 4.2 mmol/L (3.5-5.1) 01/24/25 03:45
BUN 19 mg/dl (9-20) 01/24/25 03:45
Creatinine 0.9 mg/dL (0.7-1.3) 01/24/25 03:45
Glucose 116 mg/dl (70-99) H 01/24/25 03:45
Troponins
01/22/25 01/23/25 01/23/25
13:32 00:48 05:17
Troponin I 0.074 H* 0.061 H* 0.048 H*
01/23/25
07:14
Troponin I 0.045 H*
Vital Signs and I&O:
Vital Signs
Temp Pulse Resp BP Pulse Ox
97.5 F 63 20 107/75 96
01/24/25 03:38 01/24/25 07:00 01/24/25 03:38 01/24/25 03:38 01/24/25 03:38
Vital Signs
Temp Pulse Resp BP Pulse Ox
97.5 F 63 20 107/75 96
01/24/25 03:38 01/24/25 07:00 01/24/25 03:38 01/24/25 03:38 01/24/25 03:38
Intake & Output
01/22/25 01/23/25 01/24/25 01/25/25
07:59 07:59 07:59 07:59
Intake Total 300 / 300
Balance 300 / 300
Physical Exam
Physical Exam
GEN: No distress, awake, alert, oriented x3
HEENT: supple, anicteric, mmm, EOMI
LUNGS: CTA bilaterally, no wheezes/rales
CV: Reg, S1/S2, no murmur
ABD: soft, BS+, NT/ND
EXT: No cyanosis, clubbing, edema
NEURO: Gross non-focal
SKIN: Warm, pink, dry. No rash. Right wrist site with some mild ecchymoses, dressing clean dry and intact
[2025-01-24 08:45] VITALS: BP 129/79
[2025-01-24] MEDS: NORVASC 10 MG PO (10:04)
[2025-01-24] MEDS: DIOVAN 320 MG PO (10:04)
[2025-01-24] MEDS: LOW STRENGTH ASPIRIN 81 MG PO (10:04)
[2025-01-24] MEDS: PROTONIX 40 MG PO (10:04)
[2025-01-24] MEDS: BRILINTA 90 MG PO (10:05)
[2025-01-24 11:41] VITALS: BP 125/73
--- NOTE | 2025-01-24 12:04 | W.PN.HOSP.TC ---
Addendum entered and electronically signed by Lexx Bahena MD 01/24/25 15:36:
[id number]
Original Note:
Today's Communication/Plan
-
F/u imaging of the lung and thyroid outpatient
DAPT, Statin, BB, Norvasc, Diovan
ECHO outpatient
Cardiac Rehab
F/u PCP, Pulm, Cards outpatient
Assessment / Plan
Assessment / Plan
Physical Exam
General: Well Developed, Well Nourished and No Apparent Distress
HEENT: NormoCephalic, Moist mucous membranes and Atraumatic
Respiratory: Clear and Non Labored Respirations
Cardiac: S1/S2 and Regular Rhythm; No Murmur
GI: Soft, Non Tender, Non Distended and Normal Bowel Sounds
Rectal: Deferred by Provider
Musculoskeletal: No Clubbing, No Cyanosis and No Edema
Skin: Warm and IV/Catheter Site
Neuro: Awake, AO x 3 and Nonfocal/grossly intact
Psych: Calm and Intact Judgment/Insight
#unstable angina
#Elevated Troponin
-Exercise MIBI was negative in December 2024
- PCI of 1 01/23
-Maintain aspirin and Brilinta.
Maintain Crestor Toprol Diovan
-echo outpt
#hypertension
-Toprol Diovan and Norvasc.
#hyperlipidemia
- continue atorvastatin
#CAD
- continue aspirin, brillinta and atorvastatin
#restless leg syndrome
- continue ropinirole
#GERD
- continue esomeprazole
#nodular opacities within the bilateral lower lobes measuring up to 1.7 cm in the left lower lobe.
#numerous enlarged mediastinal and right hilar lymph nodes, possibly reactive.
- Short interval follow-up CT is recommended to ensure resolution.
#There are hypodense thyroid nodules measuring up to 1.2 cm in the right hemithyroid.
- Recommend dedicated nonemergent thyroid ultrasound for further evaluation if not previously evaluated.
More than 30 minutes spent in discharge including
Final examination of the patient
Summarizing hospital stay
Instructions for continuing care to all relevant caregivers
Preparation of discharge records, prescriptions, and referral forms
Total time spent (in minutes): 37
Anticipated Discharge: Today
Subjective/Interval History
-
Date of Service: January 24, 2025
no acute events, PCI of OM1 yesterday.
Objective Data
-
Labs:
Laboratory Results
01/24/25
03:45
WBC 5.4
Hgb 13.3
Hct 39.6
Plt Count 209
Sodium 135
Potassium 4.2
Chloride 105
Carbon Dioxide 23
BUN 19
Creatinine 0.9
Glucose 116 H
Calcium 9.0
Total Bilirubin 0.5
AST 25
ALT 22
Alkaline Phosphatase 110
Vital Signs:
Vital Signs
Temp Pulse Resp BP Pulse Ox
97.9 F 63 18 107/75 98
01/24/25 08:43 01/24/25 07:00 01/24/25 08:43 01/24/25 03:38 01/24/25 11:41
I&O
01/23/25 01/24/25 01/25/25
06:59 06:59 06:59
Intake Total 300 / 300
Balance 300 / 300
Review of Systems
-
History Source: Patient
All other systems: Not reviewed unless documented
Data Reviewed
-
CT Scan: Report Reviewed by me
Labs: Labs Reviewed by me
--- NOTE | 2025-01-24 12:11 | W.DS.TRANS ---
DC Summary - Pharmacy Retail Support Specialist
-
Discharge Instructions:
Discharge Diagnosis/Procedures Angioplasty with stent to LCx and OM
Diet Low Cholesterol,Low Fat
Activity As tolerated
Driving Restrictions No driving for 24 hours
Blood Work cbc and cmp in 1 week with PCP
Others Tests cardiology office will call you on Friday 01/26
to arrange for echocardiogram in the next week
#nodular opacities within the bilateral lower
lobes measuring up to 1.7 cm in the left lower
lobe.
#numerous enlarged mediastinal and right hilar
lymph nodes, possibly reactive.
- Short interval follow-up CT is recommended to
ensure resolution.
-F/u Pulmonary Outpatient
#There are hypodense thyroid nodules measuring
up to 1.2 cm in the right hemithyroid.
-F/u with PCP for this
Other Services Cardiac Rehab
Instructions:
Stand-Alone Forms: DC Instructions- Cath/EP Lab
Changes to Home Medications: Yes
Discharge Medications:
DC Medications w/original date entered in [employer]
valsartan 320 mg tablet 320 mg PO DAILY Blood pressure 12/04/21
amlodipine 10 mg tablet 10 mg PO DAILY #90 tabs 12/07/21
atorvastatin 40 mg tablet 40 mg PO QPM #90 tabs 12/07/21
esomeprazole magnesium 20 mg capsule,delayed release (Nexium) 20 mg PO BID 01/22/25
ropinirole 1 mg tablet 2 mg PO HS 01/22/25
tadalafil 5 mg tablet 5 mg PO DAILY 01/22/25
terbinafine HCl 250 mg tablet 250 mg PO QPM 01/22/25
ticagrelor 90 mg tablet (Brilinta) 90 mg PO BID #60 tabs 01/23/25
aspirin 81 mg chewable tablet 81 mg PO DAILY 30 days #30 tabs 01/24/25
metoprolol succinate 25 mg tablet,extended release 24 hr 12.5 mg (1/2 x 25 mg) PO QPM 30 days #15 tabs 01/24/25
Home Medication Changes
ticagrelor 90 mg tablet (Brilinta) 90 mg PO BID #60 tabs 01/23/25
aspirin 81 mg chewable tablet 81 mg PO DAILY 30 days #30 tabs 01/24/25
metoprolol succinate 25 mg tablet,extended release 24 hr 12.5 mg (1/2 x 25 mg) PO QPM 30 days #15 tabs 01/24/25
Pending Results: No
--- NOTE | 2025-01-24 12:40 | PTCARENOTE ---
Pt's IC line & laboratory monitor D/C'd; D/C instructions discussed w/pt & spouse. Pt transported out via WC by staff w/his spouse driving home. 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
== END 2025-01-24 12:35 | disposition home or self-care (01) | DRG 322 ==
LOC: IVU 16:48
PROVIDERS: Emergency Medicine; Internal Medicine Cardiovascular Disease; Internal Medicine Interventional Cardiology; Nurse Practitioner Family; Physician Assistant Medical; ADMITTING PHYSICIAN Internal Medicine; ATTENDING PHYSICIAN Internal Medicine; EMERGENCY PHYSICIAN Emergency Medicine; FAMILY PHYSICIAN Family Medicine; OTHER PHYSICIAN Internal Medicine Cardiovascular Disease
PROC: B2111ZZ Fluoroscopy of Multiple Coronary Arteries using Low Osmolar Contrast (ICD-10-PCS; 2025-01-23)
PROC: 027034Z Dilation of Coronary Artery, One Artery with Drug-eluting Intraluminal Device, Percutaneous Approach (ICD-10-PCS; 2025-01-23)
PROC: 4A023N7 Measurement of Cardiac Sampling and Pressure, Left Heart, Percutaneous Approach (ICD-10-PCS; 2025-01-23)
DX: I25.110 Atherosclerotic heart disease of native coronary artery with unstable angina pectoris (principal); I10 Essential (primary) hypertension; G25.81 Restless legs syndrome; K21.9 Gastro-esophageal reflux disease without esophagitis; E04.2 Nontoxic multinodular goiter; Z87.891 Personal history of nicotine dependence; Z88.1 Allergy status to other antibiotic agents; Z79.82 Long term (current) use of aspirin; Z79.899 Other long term (current) drug therapy; E78.00 Pure hypercholesterolemia, unspecified; G47.30 Sleep apnea, unspecified; Z82.49 Family history of ischemic heart disease and other diseases of the circulatory system; Z85.828 Personal history of other malignant neoplasm of skin
CPT/HCPCS: 80053; 80061; 83036; 83735; 84484; 85025; 85027; 85347; 85610; 85730; 92978; 93005; 93458; 96365; 96366; 99152; 99153; 99291; C1725; C1769; C1874; C9600; Q9967

== ENCOUNTER → 2025-02-03 09:15 | Outpatient (REF) | payer BC, SELFPAY | LOC: HWRCS 09:15 | PROVIDERS: ATTENDING PHYSICIAN Internal Medicine Cardiovascular Disease; FAMILY PHYSICIAN Family Medicine | DX: I21.4 Non-ST elevation (NSTEMI) myocardial infarction (principal) | CPT/HCPCS: 93306 ==

== ENCOUNTER → 2025-02-11 08:53 | Outpatient (REF) | payer BC, SELFPAY | LOC: HWRAD 08:53 | PROVIDERS: ATTENDING PHYSICIAN Family Medicine | DX: E04.1 Nontoxic single thyroid nodule (principal) | CPT/HCPCS: 76536 ==

== ENCOUNTER → 2025-07-07 08:08 | Outpatient (REF) | payer BC, SELFPAY | LOC: HWRAD 08:08 | PROVIDERS: ATTENDING PHYSICIAN Nurse Practitioner Adult Health; FAMILY PHYSICIAN Family Medicine | DX: R93.89 Abnormal findings on diagnostic imaging of other specified body structures (principal); R59.9 Enlarged lymph nodes, unspecified | CPT/HCPCS: 71250 ==